=== PATIENT | female | born 2005 | race Caucasian/White ===

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

== ENCOUNTER 2023-04-17 15:41 | Emergency (ER) | payer BC, SELFPAY ==
[2023-04-17 15:48] VITALS: BP 131/55; PULSE 107; RESP 18; TEMP 36.9; O2SAT 100
--- NOTE | 2023-04-17 16:11 | ED.URI ---
HPI - URI/Sore Throat General Chief Complaint: Upper Respiratory Infection Stated Complaint: Congestion,Bilateral Ear Irritation Source: patient and family (mother ) Mode of arrival: ambulatory Limitations: no limitations History of Present Illness HPI Narrative: 18-year-old female presents to [facility] with complaints of nasal congestion, bilateral ear pain, vertigo, dry cough and body aches for the past 2 weeks. Patient reports long history of ear issues. Patient has been taking [id number] decongestants and cold medications with minimal relief. Patient denies sick contacts. Patient reports that she did recently travel to [facility] fracture to 3 weeks ago. Patient denies fevers. MD elicited complaint: cough, rhinorrhea, nasal congestion and sinus pain Onset (ago): week(s) (2) Able to tolerate fluids by mouth: Yes Exacerbating factors: nothing Relieving factors: nothing Treatments prior to arrival: cold medicine Related Data Allergies Allergy/AdvReac Type Severity Reaction Status Date / Time No Known Allergies Allergy Verified 08/25/22 20:11 Review of Systems Constitutional: Constitutional: Reports chills, Denies fatigue and Denies fever(s) ENT: Reports vertigo, Denies dizziness, Denies epistaxis, Reports nasal congestion and Reports sore throat Cardiovascular: Cardiovascular: Denies chest pain Respiratory: Respiratory: Reports cough, Denies dyspnea and Denies wheezing Gastrointestinal: Gastrointestinal: Denies diarrhea, Denies nausea and Denies vomiting Integumentary/Breasts: Skin/Breast: Denies rash Neurologic: Denies headache(s) PMFSH Past Medical History Medical History Asthma Seasonal allergies Surgical History Surgical History History of adenoidectomy History of placement of ear tubes Social History Social History Living arrangements: with family Gender identity (if verbalized by the patient): Female Comments At time of signature, I agree with nursing past medical, surgical, social and family history. There is no relevant family history pertinent to the presenting complaint. Exam Const: General: healthy appearing and no acute distress Nutritional Appearance: well nourished Orientation/consciousness: patient oriented x3 Limitations: no limitations HENMT: Head: normal to inspection Ears: external ears normal and TM abnormal wth effusion purulent bilateral Face and sinus: sinus tenderness frontal Mouth: Yes moist mucous membranes Teeth and gingiva: dentition normal Throat: posterior oropharynx normal and uvula midline Other: Moderate bilateral nasal congestion noted; large amount of scar tissue noted to bilateral TMs Eyes: Conjunctivae: conjunctivae normal Neck: Neck: normal visual inspection Resp: Effort & Inspection: normal respiratory effort and not labored Auscultation: clear to auscultation bilaterally, no crackles, no rales and no rhonchi Cardio: Rate: regular rate Rhythm: regular rhythm Heart sounds: no murmurs Skin: General skin exam: normal color Rashes: no rashes Neuro: Speech: normal speech Gait exam (Neuro): Normal gait present Psych: Affect: normal affect Attitude: cooperative Course Course Level of Care: Express Care Visit Vital Signs Vital signs: Vital Signs Temperature 36.9 C 04/17/23 15:48 Pulse Rate 107 H 04/17/23 15:48 Respiratory Rate 18 04/17/23 15:48 Blood Pressure 131/55 L 04/17/23 15:48 Pulse Oximetry 100 04/17/23 15:48 Oxygen Delivery Room Air 04/17/23 15:48 Temperature 36.9 C 04/17/23 15:48 Pulse Rate 107 H 04/17/23 15:48 Respiratory Rate 18 04/17/23 15:48 Blood Pressure 131/55 L 04/17/23 15:48 Pulse Oximetry 100 04/17/23 15:48 Oxygen Delivery Room Air 04/17/23 15:48 MDM - URI/Sore Throat MDM Narrative
== END 2023-04-17 16:21 | disposition home or self-care (01) ==
PROVIDERS: Emergency Provider Nurse Practitioner Family
DX: J32.9 Chronic sinusitis, unspecified (principal); J45.909 Unspecified asthma, uncomplicated
CPT/HCPCS: 99213; G0463

== ENCOUNTER 2024-06-14 09:19 | Emergency (ER) | payer BC, SELFPAY ==
--- NOTE | 2024-06-14 09:29 | ED.URI ---
HPI - URI/Sore Throat General Chief Complaint: Upper Respiratory Infection Stated Complaint: congestion and coughs Time Seen by Provider: 06/14/24 09:29 Source: patient Mode of arrival: ambulatory Limitations: no limitations History of Present Illness HPI Narrative: 19-year-old female presents with complaint of nasal congestion, sinus pressure, sinus headaches, postnasal drainage for 2-3 weeks. For the past 5 to 6 days is coughing. Reports chest congestion. taking Claritin and ibuprofen daily. Has not started a decongestant cut she states they are expensive. No chest pain or shortness of breath at this time But states feels like as chest congestion. History of asthma. Using maintenance inhaler daily. States has not needed albuterol inhaler. All systems reviewed and negative except as noted above. Related Data Home Medications Medication Instructions Recorded Confirmed budesonide 160 mcg-glycopyr 9 2 inh inhalation BID 06/14/24 06/14/24 mcg-formot 4.8 mcg/actuation HFA inhaler (Breztri Gucashphere) Allergies Allergy/AdvReac Type Severity Reaction Status Date / Time No Known Allergies Allergy Verified 06/14/24 09:25 Review of Systems Review of Systems: CONSTITUTIONAL: Denies fever, chills, or sweats. reports fatigue. EYES: Denies visual changes, redness, or discharge. ENT: Report rhinorrhea, congestion , sinus pressure, sinus headaches. Denies sore throat, or otalgia. CARDIOVASCULAR: Denies chest pain, palpitations, or edema. RESPIRATORY: reports cough. Denies dyspnea. GASTROINTESTINAL: Denies abdominal pain, nausea, vomiting, or diarrhea. GENITOURINARY: Denies dysuria or hematuria. SKIN: Denies rash or itching. MUSCULOSKELETAL: Denies back pain, joint pain, or myalgia. NEUROLOGIC: Denies headache, numbness, or weakness. PSYCHIATRIC: Denies anxiety or depression. All other systems reviewed are negative, except as documented in HPI. [facility] Past Medical History Medical History Asthma Seasonal allergies Surgical History Surgical History History of adenoidectomy History of placement of ear tubes Social History Social History Living arrangements: with family Gender identity (if verbalized by the patient): Female Comments At time of signature, agree with nursing past medical, surgical, social and family history. There is no relevant family history pertinent to the presenting complaint. Exam Narrative: GENERAL: This is a well-nourished, well-developed patient, in no apparent distress. HEAD: normocephalic, atraumatic. EYES: PERRL. Sclera clear/white. Vision is grossly intact. EARS: External ears normal, auditory canals clear and without drainage, TMs normal without perforation. Hearing grossly intact. NOSE: External nose normal with purulent nasal drainage, moderate congested, erythema and swelling to nares, maxillary sinus tenderness palpation THROAT: Mucous membranes moist, purulent postnasal drainage NECK: Neck supple, non-tender without lymphadenopathy, masses or thyromegaly. CARDIOVASCULAR: Regular rate and rhythm without murmurs, gallops, or rubs. RESPIRATORY: Clear to auscultation. Breath sounds equal bilaterally. No wheezes, rales, or rhonchi. SKIN: warm, Dry, intact with no suspicious lesions or rash, good texture and turgor. NEURO: awake, alert, and oriented to person, place and time. There were no obvious focal neurologic abnormalities. EXTREMITIES: No joint tenderness, effusion, or edema noted. Course Course Level of Care: Express Care Visit Vital Signs Vital signs: Vital Signs Temperature 36.6 C 06/14/24 09:30 Pulse Rate 87 06/14/24 09:30 Respiratory Rate 20 06/14/24 09:30 Blood Pressure 134/73 06/14/24 09:30 Pulse Oximetry 100 06/14/24 09:30 Oxygen Delivery Room Air
[2024-06-14 09:30] VITALS: BP 134/73; PULSE 87; RESP 20; TEMP 36.6; O2SAT 100
== END 2024-06-14 09:50 | disposition home or self-care (01) ==
PROVIDERS: Emergency Provider Nurse Practitioner Family
DX: J01.90 Acute sinusitis, unspecified (principal); J45.909 Unspecified asthma, uncomplicated
CPT/HCPCS: 99213; G0463

== ENCOUNTER 2025-06-15 18:06 | Emergency (ER) | payer BC, SELFPAY ==
--- NOTE | 2025-06-15 18:08 | ED_ITS ---
HPI - Female Genitourinary General Chief complaint: Urogenital-Female Stated complaint: UTI Time Seen by Provider: 06/15/25 18:07 Source: patient Mode of arrival: ambulatory Limitations: no limitations History of Present Illness HPI Narrative: Patient is a 20-year-old female that presents with urinary frequency and feeling of retention for 1 week. Patient also reports occasional cramps and ache and right back. Denies any fever, chills, nausea vomiting, diarrhea, burning or urgency. Denies any concern for STI. Denies any history of kidney stone but has had similar symptoms like this in the past. MD elicited complaint: dysuria Related Data Home Medications ?Medication ?Instructions ?Recorded ?Confirmed ?Last Taken ?Type budesonide 160 mcg-glycopyr 9 2 inh inhalation BID 01/0206/14/24 Unknown History mcg-formot 4.8 mcg/actuation HFA inhaler ([employer] Softwareztri Rdiophere) Allergies Allergy/AdvReac Type Severity Reaction Status Date / Time No Known Allergies Allergy Verified 06/15/25 18:08 Review of Systems Review of Systems: All systems reviewed & are unremarkable except as noted in HPI and below Constitutional: Constitutional: Denies chills, Denies fever(s), Denies headache(s), Denies malaise and Denies weakness Eyes: Eyes: Denies change in vision, Denies eye discharge and Denies irritation ENT: Denies otalgia, Denies headache(s), Denies nasal congestion, Denies nasal discharge, Denies sinus pain and Denies sore throat Cardiovascular: Cardiovascular: Denies chest pain, Denies edema, Denies palpitations and Denies dyspnea Respiratory: Respiratory: Denies cough and Denies dyspnea Gastrointestinal: Gastrointestinal: Denies abdominal pain, Denies diarrhea, Denies nausea and Denies vomiting Genitourinary: Genitourinary: Denies hematuria, Reports nocturia, Denies dysuria, Reports flank pain and Denies urinary urgency Musculoskeletal: Musculoskeletal: Denies back pain and Denies numbness Integumentary/Breasts: Skin/Breast: Denies pruritus and Denies rash Neurologic: Denies headache(s), Denies numbness and Denies weakness Psychiatric: Psychiatric: Reports no additional psychiatric complaints Endocrine: Endocrine: Denies palpitations PMFSH Past Medical History Medical History Seasonal allergies Asthma Surgical History Surgical History History of adenoidectomy History of placement of ear tubes Social History Social History Living arrangements: with family Gender identity (if verbalized by the patient): Female Comments At time of signature, agree with nursing past medical, surgical, social and family history. There is no relevant family history pertinent to the presenting complaint. Exam Const: General: cooperative, healthy appearing, comfortable, no acute distress and well nourished Nutritional Appearance: well nourished [place] ation/consciousness: patient oriented x3 HENMT: Head: normocephalic and atraumatic Ears: external ears normal Face/Nose/Sinus: Normal external nose present, Normal nares present and normal facial exam Face and sinus: normal facial exam Eyes: General: appearance normal, both eyes and all related structures Pupils: Equal, round and reactive pupils present EOM: EOMs intact bilaterally Neck: Neck: normal visual inspection, full ROM and supple Chest: Chest palpation & inspection: normal inspection of the chest Resp: Effort & Inspection: normal respiratory effort and able to speak in complete sentences Cardio: Rate: regular rate Rhythm: regular rhythm GI: Inspection: normal to inspection GI Palp: No abdominal tenderness and Yes Soft to palpation : General: Yes CVA tenderness on the right Back/Spine/Pelvis: Back: no CVA tenderness Skin: General skin exam: normal color and no rashes or lesions noted Neuro: General: patient oriented x3 and moves all extremities Cranial nerves: Yes Equal, round and reactive pupils present Extrem: General: normal to inspection and full ROM Psych: Appearance: grossly normal and well kempt Course Course Emergency Course: Patient is aware of diagnosis, understands and agrees to treatment plan. Anticipatory guidance given. Patient agrees to follow-up as directed and is aware of reasons to seek care at the emergency department. Portions of this record may have been created with voice recognition software Level of Care: Express Care Visit Vital Signs Vital signs: Vital Signs Temperature 36.7 C 06/15/25 18:14 Pulse Rate 96 06/15/25 18:14 Respiratory Rate 18 06/15/25 18:14 Blood Pressure 141/76 H 06/15/25 18:14 Pulse Oximetry 100 06/15/25 18:14 Oxygen Delivery Room Air 06/15/25 18:14 Temperature 36.7 C 06/15/25 18:14 Pulse Rate 96 06/15/25 18:14 Respiratory Rate 18 06/15/25 18:14 Blood Pressure 141/76 H 06/15/25 18:14 Pulse Oximetry 100 06/15/25 18:14 Oxygen Delivery Room Air 06/15/25 18:14 Reviewed MDM - Female Genitourinary MDM Narrative Medical decision making narrative: Symptoms consistent with possible kidney stone. Will prescribed Flomax and antibiotic as a precaution. Discussed going to emergency department if symptoms worsen. Patient to strain all urine Pt well hydrated appearing, in no respiratory distress, hemodynamically stable. Recommend supportive care. The patient is stable at time of discharge the clinical impression was discussed and the patient was given the opportunity to ask questions, which were addressed as completely as possible given the information available at present. Anticipatory guidance and return to care precautions were discussed and the importance of primary care follow-up was stressed and encouraged. The patient voiced understanding of the plan, indications to return, and the need for follow-up. Exam findings show no acute concerns or changes Patient is appropriate for outpatient treatment and follow-up. Differential Diagnosis Differential diagnosis: Likely urinary tract infection, bacterial vaginosis, trichomoniasis, cervicitis, vaginitis and cystitis Medical Records Attestation: I reviewed the patient's medical records. Lab Data Attestation: I reviewed the patient's lab results. Labs: Lab Results 06/15/25 Range/Units 18:19 POC Urine Color Light/pale POC Urine Clarity Clear POC Urine pH 6.0 POC Ur Specif [place] 1.005 POC Urine Protein Negative (Negative) POC Ur Glucose (UA) Negative (Negative) POC Urine Ketones Negative (Negative) POC Urine Blood Trace (Negative) POC Urine Nitrite Negative (Negative) POC Urine Bilirubin Negative (Negative) POC Urine Urobilinogen 0.2 POC U Leukocyte Esteras Negative (Negative) Discharge Plan Discharge Clinical Impression: Urinary frequency, Right costovertebral angle tenderness Patient Disposition: Home Condition: Stable Instructions: Urinary Urgency and Frequency (DC) Additional Instructions: Strain all urine incase a stone passes. Take Flomax as prescribed We will send a urine culture to the lab, based on your symptoms and urine dip we will start treatment today. If culture comes back and bacteria is not susceptible to antibiotic, your prescription may change. Your symptoms should improve within a day of starting antibiotics, but you should finish all the antibiotic pills you get. Otherwise your infection might come back Continue with increased water intake. Take Tylenol or ibuprofen as needed for pain or fever. Follow-up with primary care provider for urine recheck or see ER visit if condition worsens with high fever, nausea, vomiting, severe back pain Patient Language: Burmese Prescriptions: New sulfamethoxazole-trimethoprim 800-160 mg tablet 1 tablet PO Q12H 10 Days Qty: 20 0RF tamsulosin 0.4 mg capsule 0.4 mg PO DAILY Qty: 10 0RF No Action Breztri Aerosphere 160-9-4.8 mcg/actuation Hfa Aerosol Inhaler 2 inh INHALATION BID fluticasone propionate [Flonase Allergy Relief] 50 mcg/actuation spray, suspension 1 spray intranasal BID Qty: 16 0RF Rx Instructions: administer into each nostril pseudoephedrine HCl 60 mg tablet 60 mg PO Q4-6H PRN (Reason: nasal congestion) Qty: 20 0RF Rx Instructions: DNExceed 4 doses/24h Follow-up/Referrals: Frantz Aguayo MD [Physician, Family Practice] - 3 Days Referral Note: Establish care Time of Disposition: 18:37
--- OUTSIDE RECORDS SUMMARY | 2025-06-15 18:08 | XMS_ITS | Clinical Summary ---
Author Organization [facility] Address [address] [place] [address] Care Team Providers Care Reefer Engineer Name Role Phone Darwin Cassidy MD Unavailable [phone] Source Comments [facility],non-owned Affiliates and Associated Physician Practices is amultiple site organization consisting of ambulatory clinics and hospital sitesin [place], [place], [place] and [place]. This disclosure is being madepursuant to the Care Everywhere program and may not contain all information available regarding this patient. Last updated 18.[facility] Allergies No known active allergies Medications * Be aware that medications may not be up to date on this document. Alwaysverify current medications with the patient. fluticasone propionate (FLONASE) 50 MCG/ACT nasal sprayIndication s:Nasopharyngit is acute [place] 2 sprays into each nostril once daily 1 bottles 8 Active Additional Information Patient not taking.Reported on 01/25/2021 SUMAtriptan (IMITREX) 50 MG tablet Take 1 tablet by mouth as needed for Migraine Take at onset of NAIK. May repeat 2nd dose in 2 hours. Not more than 2 per day. 10 tablet 5 9 Active topiramate (TOPAMAX) 50 MG tablet TAKE ONE TABLET BY MOUTH AT BEDTIME 30 tablet 5 9 Active Additional Information Patient not taking.Reported on 01/25/2021 cetirizine (ZYRTEC) 10 MG tablet Take 10 mg by mouth once daily Active Ascorbic Acid (EMERY-C PO) Active Fluticasone Propionate HFA (FLOVENT HFA IN) Active ALBUTEROL IN Active Active Problems Problem Noted Date Diagnosed Date Migraine 10/03/2017 Hypertrophy of adenoids 07/06/2010 Chronic otitis media with effusion 07/06/2010 Resolved Problems Problem Noted Date Diagnosed Date Resolved Date Sinusitis 10/03/2017 10/31/2017 Family History Medical History Relation Name Comments Anesthesia Reaction Neg Hx Asthma Neg Hx Autoimmune Disease Neg Hx Bipolar Disorder Neg Hx Bleeding Disorders Neg Hx Cancer - Breast Neg Hx Cancer - Colon Neg Hx Cancer - Other Neg Hx Cancer - Ovarian Neg Hx Cancer - Pancreatic Neg Hx Cancer - Prostate Neg Hx Childhood Hearing Disorder Neg Hx Depression Neg Hx Eczema Neg Hx Hypertension Neg Hx Migraine Neg Hx Osteoporosis Neg Hx Seizures Neg Hx Sudd. 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 Gender Identity Not on file Sexual Orientation Not on file Last Filed Vital Signs Vital Sign Reading Time Taken Comments Blood Pressure 110/62 01/25/2021 2:27 PM CDT Pulse 89 01/25/2021 2:27 PM CDT Temperature 36.8 C (98.3 F) 01/25/2021 2:27 PM CDT Respiratory Rate 16 01/25/2021 2:27 PM CDT Oxygen Saturation 98% 01/25/2021 2:27 PM CDT Inhaled Oxygen Concentration - - Weight 54.4 kg (120 lb) 01/25/2021 2:27 PM CDT Height 161.3 cm (5' 3.5) 01/25/2021 2:27 PM CDT Body Mass Index 20.92 01/25/2021 2:27 PM CDT Plan of Treatment Health Maintenance Due Date Last Done Comments HIV SCREENING 2018 HPV VACCINE (1 - 3-dose series) 2018 CHLAMYDIA/GONORRHEA SCREENING 2019 MENINGOCOCCAL (Group B) VACCINE SHARED DECISION-MAKING (1 of 2 - Standard) 2019 HEPATITIS C SCREENING 03/14/2021 DTAP/TDAP/TD VACCINES (1 - Tdap) 2022 HEPATITIS B VACCINE (1 of 3 - 19+ 3-dose series) 2022 DEPRESSION SCREENING 09/11/2024 COVID-19 VACCINE (3 - 2024- season) 2025 01/08/2021, 12/16/2020 INFLUENZA VACCINE (#1) 2025 , 10/19/2017, 07/22/2015, Additional history exists ZOSTER VACCINE (1 of 2) 2053 HIB VACCINE Aged Out No longer eligi ble based on patient's age to complete this topic MENINGOCOCCAL GROUPS A/C/Y/W VACCINE Aged Out No longer eligible based on patient's age to complete this topic PNEUMOCOCCAL VACCINE Aged Out No long er eligible based on patient's age to complete this [place] [address] [place] [address] [place] [address] [employer] Care Teams Reefer Engineer Relationship Specialty Start Date End Date Darwin Cassidy MD [id number] [place] [address] Consulting Physician Otolaryngology 08/16/17
--- OUTSIDE RECORDS SUMMARY | 2025-06-15 18:08 | XMS_ITS | Clinical Summary ---
Author Organization [facility] Address [address] [place] [id number] Care Team Providers Care Central Service Technician Name Role Phone Provider, None Primary Care Provider Unavailabl e Allergies No known active allergies Medications FLUTICASONE PROPIONATE, NASAL, NA take by inhalation . 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 Gender Identity Not on file Sexual Orientation Not on file Last Filed Vital Signs Vital Sign Reading Time Taken Comments Blood Pressure 141/79 06/08/2023 2:03 PM CDT Pulse 105 06/08/2023 2:36 PM CDT Temperature 36.1 C (97 F) 06/08/2023 2:03 PM CDT Respiratory Rate 18 06/08/2023 2:03 PM CDT Oxygen Saturation 99% 06/08/2023 2:36 PM CDT Inhaled Oxygen Concentration - - Weight 59 kg (130 lb) 06/08/2023 2:03 PM CDT Height 162.6 cm (5' 4) 06/08/2023 2:03 PM CDT Body Mass Index 22.31 06/08/2023 2:03 PM CDT Plan of Treatment Health Maintenance Due Date Last Done Comments Hepatitis C Virus (HCV) Screening 2003 Influenza Immunization (#1) 05/12/202506/11, 10/19/2017, 07/22/2015, Additional history exists SARS-COV-2 Immunization ( season) 2025 01/08/2021, 12/16/2020 Respiratory Syncytial Virus (RSV) Immunization (Adult) (1 - 1-dose 75+ series) 2078 Hepatitis B Immunization Completed 005, 2003, 2003 Pneumococcal Immunization Combined Aged Out 05/18/2005, 2003, 2003, Additional history exists No longer eligible based on patient's age to complete this topic Measles Mumps Rubella (MMR) Immunization Discontinued 04/02/2008, 06/25/2004 Polio (IPV) Immunization Discontinued 008, 05/18/2005, 2003, Additional history exists Varicella Immunization Discontinued 04/02/2008, 2003 DTaP/Tdap/Td Immunization Discontinued 2013, 04/02/2008, 05/18/2005, Additional history exists Hepatitis A Immunization Discontinued 05/19/2014, 03/12 TdaP Immunization Completed 05/19/2014 Human Papillomavirus (HPV) Immunization Completed 04/30/2016, 07/22/2015, 05/20/2015 Meningococcal Immunization (ACWY) Completed 06/25/2020, 05/19/2014 Meningococcal B Immunization Completed 08/31/2020, 06/25/2020 Rotavirus Immunization Aged Out No lo nger eligible based on patient's age to complete this topic Insurance [facility] Care Teams Central Service Technician Relationship Specialty Start Date End Date Provider, None ROLAND PCP - General 06/09/23
--- OUTSIDE RECORDS SUMMARY | 2025-06-15 18:08 | XMS_ITS | Patient Health Record ---
Author Organization [facility] Address [address] [place], [place] [id number] Support Name Relationship Address Phone FLEX RAMOS Emergency Contact Unknown CORNELL RAMOS Guarantor Unknown [phone] Reason For Referral No Information Medications Medication SIG (Take, Route, Frequency, Duration) Notes Start Date End Date Status cetirizine hydrochloride 10 MG Oral Capsule [Zyrtec] ORAL cetirizine hydrochloride 10 MG Oral Capsule [Zyrtec]Original Medicationcetirizine hydrochloride 10 MG Oral Capsule [Zyrtec] *Reorder from [employer] for eRx and Interaction Alerts* 5 Active [id number] 200 ACTUAT albuterol 0.09 MG/ACTUAT Metered Dose Inhaler INTRAPULMONARY [id number] 200 ACTUAT albuterol 0.09 MG/ACTUAT Metered Dose InhalerOriginal [id number] 200 ACTUAT albuterol 0.09 MG/ACTUAT Metered Dose Inhaler *Reorder from [employer] for eRx and Interaction Alerts* 5 Active Plan Of Treatment No Information Insurance Providers Payer Name Payer Address Payer Phone Subscriber Number Group Number Insured Name Patient Relationship to Insured Coverage Start Date Coverage End Date [employer] PPO [address] [place], [place] [id number] SHASTA RAMOS Self - patient is the insured
[2025-06-15 18:14] VITALS: BP 141/76; PULSE 96; RESP 18; TEMP 36.7; O2SAT 100
[2025-06-15 18:21] LABS: EDUAAPPEAR Clear; EDUABILI Negative (Negative); EDUABLOOD Trace (Negative); EDUACOLOR1 Light/Pale; EDUAGLUCOSE Negative (Negative); EDUAKETONE Negative (Negative); EDUALEUKO Negative (Negative); EDUANITRATE Negative (Negative); EDUAPH 6.0; EDUAPROTEIN Negative (Negative); EDUASPGRAVITY 1.005; EDUAUROBILI 0.2
== END 2025-06-15 18:38 | disposition home or self-care (01) ==
PROVIDERS: Emergency Provider Nurse Practitioner Family
DX: R35.0 Frequency of micturition (principal); R10.A1 Flank pain, right side; J45.909 Unspecified asthma, uncomplicated
CPT/HCPCS: 81003; 87077; 87086; 87186; 99213; G0463